=== PATIENT | female | born 1995 ===

== ENCOUNTER 2018-02-01 17:04 | Emergency (ER) | payer OTHER, SELFPAY ==
[2018-02-01 18:14] VITALS: BP 122/83; PULSE 84; RESP 16; TEMP 37.2; O2SAT 99; BMI 27.4
--- NOTE | 2018-02-01 19:04 | DI.US.S_ITS ---
PROCEDURE: US PELVIC COMPLETE INDICATIONS: LEFT PELVIC PAIN TECHNIQUE: Real-time scanning was performed of the pelvic organs, with image documentation. Additional endovaginal scanning was necessary due to incomplete visualization of the adnexal and endometrial structures by transabdominal scanning. COMPARISON: None. FINDINGS: Transabdominal scanning: Limited scanning through the kidneys shows no hydronephrosis. No pathologic free abdominal or pelvic fluid. Endovaginal scanning: Uterus: Uterus is normal in size at 8.1 x 4.2 x 5.7 cm. The endometrium measures 13.8 mm in combined thickness. Ovaries: The right ovary measures 3.4 x 1.9 x 2.2 cm and has a normal echotexture. The left ovary measures 3.3 x 2.1 x 2.9 cm. There is a 2.4 x 1.3 x 2.1 cm simple left ovarian cyst. There is normal right and left Doppler ovarian waveforms. IMPRESSION: 1. Simple left ovarian cyst which is likely physiologic in a premenopausal female. 2. Otherwise unremarkable pelvic ultrasound. Dictated by: Tania Maya M.D. on 02/01/2018 at 19:40 Approved by: Tania Maya M.D. on 02/01/2018 at 19:42
[2018-02-01 19:15] LABS: Add Manual Diff / Slide Review NO; Basophils Percent Auto 0.4 % (0-2); Eosinophils Percent Auto 1.5 % (2-4); Hematocrit 43.8 % (36-46); Hemoglobin 14.9 g/dL (12.0-16.0); Lymphocytes Percent Auto 18.4 % (25-40); Mean Corpuscular Hemoglobin 29.7 PG (26-34); Mean Corpuscular Volume 87.6 fL (80-100); Monocytes Percent Auto 10.3 % (3-14); Neutrophils Absolute Auto 4900 /uL (3000-5900); Neutrophils Percent Auto 69.4 % (50-75); Platelet Count 229 X10^3/uL (150-400); Red Cell Distribution Width 12.9 % (11.6-14.8); White Blood Cell Count 7.1 X10^3/uL (4.5-11.0)
[2018-02-01 19:18] LABS: BUN Creatinine Ratio 13.8 (6-22); Blood Urea Nitrogen 11 mg/dL (7-17); Carbon Dioxide 29 mmol/L (22-32); Chloride 100 mmol/L (98-107); Estimated Glomerular Filt Rate > 60.0 mL/min (>60); Glucose 83 mg/dL (70-100); HEMOLYSIS < 15 (0-50); Potassium 3.6 mmol/L (3.4-5.1); Sodium 141 mmol/L (137-145)
[2018-02-01 20:09] VITALS: BP 129/81; PULSE 79; RESP 14; TEMP 37; O2SAT 100
--- NOTE | 2018-02-01 20:21 | ED.ABDPAIN ---
HPI - Abdominal Pain <MARCOS Sy - Last Filed: 02/01/18 22:18> General Chief Complaint: Abdominal Pain Stated Complaint: ABD PAIN LT SIDE Time Seen by Provider: 02/01/18 20:20 Source: patient Mode of arrival: ambulatory Limitations: no limitations History of Present Illness HPI narrative: 23-year-old female with history of ovarian cyst here for complaint of left-sided pelvic pain that started 3 days ago. She denies any trauma to the area. She denies any abnormal vaginal discharge or bleeding. The last bowel movement was earlier today and was unremarkable. No urinary symptoms. No nausea or vomiting she denies any other concerns or complaints. She is concerned she may have another ovarian cyst. She denies any stress relievers of her pain. MD complaint: abdominal pain Related Data Home Medications Medication Instructions Recorded Confirmed norethindrone-e.estradiol-iron 1 tab PO DAILY 02/01/18 [ (28)] Allergies Allergy/AdvReac Type Severity Reaction Status Date / Time latex [LATEX] Allergy Unknown HIVES Unverified 02/01/18 18:13 Review of Systems <MARCOS Sy - Last Filed: 02/01/18 22:18> Review of Systems All systems reviewed & are unremarkable except as noted in HPI and below Constitutional Denies chills, Denies fever(s), Denies lethargy and Denies weakness Eyes Denies change in vision, Denies eye discharge, Denies irritation and Denies loss of vision ENT Ears, Nose, Mouth, and Throat: Denies change in voice, Denies neck pain and Denies sore throat Cardiovascular Denies chest pain, Denies irregular heart rhythm, Denies lightheadedness, Denies palpitations, Denies dyspnea, Denies dyspnea on exertion and Denies orthopnea Respiratory Denies cough, Denies dyspnea, Denies dyspnea on exertion and Denies wheezing Gastrointestinal Gastrointestinal: Denies abdominal pain, Denies change in bowel habits, Denies diarrhea, Denies nausea and Denies vomiting Genitourinary Comments: Left pelvic pain Musculoskeletal Denies neck pain Integumentary/Breasts Denies pruritus, Denies erythema, Denies rash and Denies wounds Neurologic Denies confusion, Denies loss of vision and Denies weakness Psychiatric Denies anxiety, Denies confusion, Denies depression, Denies homicidal ideation and Denies suicidal ideation Endocrine Denies palpitations Hematologic/Lymphatic Denies easy bruising Allergic/Immunologic Denies wheezing Exam <MARCOS Sy - Last Filed: 02/01/18 22:18> Initial Vital Signs Initial Vital Signs: Vital Signs Temperature 98.9 F 02/01/18 18:14 Pulse Rate 84 02/01/18 18:14 Respiratory Rate 16 02/01/18 18:14 Blood Pressure 122/83 02/01/18 18:14 Pulse Oximetry 99 02/01/18 18:14 Const General: cooperative and well developed Nutritional Appearance: well nourished Orientation: alert, awake, oriented x3 and not confused HENAZ Mouth: oral mucosae normal and moist mucous membranes Eyes Conjunctivae: conjunctivae normal Sclera: sclerae normal Pupils: PERRL EOM: EOM intact bilaterally Resp Effort & Inspection: normal respiratory effort, able to speak in complete sentences, no respiratory distress and no use of accessory muscles Auscultation: clear to auscultation bilaterally, no rales, no rhonchi and no wheezes Cardio Rate: regular rate Rhythm: regular rhythm Heart Sounds: no click, no gallops, no murmurs and no rubs Pulses: normal peripheral pulses GI Inspection: non-distended Palpation: soft, no hepatosplenomegaly, No guarding, No pulsatile mass and tender ( tenderness to the left pelvic region) Auscultation: normal bowel sounds General: No CVA tenderness Skin General: no rashes or lesions noted, No jaundice and No petechiae Neuro General: alert, oriented x3, gait normal and no focal motor deficits Speech: speech normal <Ada Way DO - Last Filed: 02/02/18 22:32> Initial Vital Signs Initial Vital Signs: Vital Signs Temperature 98.9 F 02/01/18 18:14 Pulse Rate 84 02/01/18 18:14 Respiratory Rate 16 02/01/18 18:14 Blood Pressure 122/83 02/01/18 18:14 Pulse Oximetry 99 02/01/18 18:14 Course <MARCOS Sy - Last Filed: 02/01/18 22:18> Orders Ordered: ED Orders 02/01/18 18:50 Basic Metabolic Panel Stat Complete Blood Count AUTO DIFF Stat 02/01/18 19:04 US pelvic complete Stat Vital Signs - 8 hr 02/01/18 18:14 02/01/18 20:09 Temperature 98.9 F 98.6 F Pulse Rate 84 79 Respiratory Rate 16 14 Blood Pressure 122/83 Blood Pressure [Left Arm] 129/81 Pulse Oximetry 99 100 <Ada Way DO - Last Filed: 02/02/18 22:32> Orders Ordered: ED Orders 02/01/18 18:50 Basic Metabolic Panel Stat Complete Blood Count AUTO DIFF Stat 02/01/18 19:04 US pelvic complete Stat Vital Signs - 8 hr 02/01/18 18:14 02/01/18 20:09 Temperature 98.9 F 98.6 F Pulse Rate 84 79 Respiratory Rate 16 14 Blood Pressure 122/83 Blood Pressure [Left Arm] 129/81 Pulse Oximetry 99 100 MDM - Abdominal Pain <MARCOS Sy - Last Filed: 02/01/18 22:18> Lab Data Result diagrams: 02/01/18 18:50 02/01/18 18:50 Lab Results 02/01/18 02/01/18 Range/Units 18:50 18:50 WBC 7.1 (4.5-11.0) X10^3/uL RBC 5.00 (4.0-5.2) X10^6/uL Hgb 14.9 (12.0-16.0) g/dL Hct 43.8 (36-46) % MCV 87.6 (80-100) fL MCH 29.7 (26-34) PG MCHC 34.0 (30-36) % RDW 12.9 (11.6-14.8) % Plt Count 229 (150-400) X10^3/uL Neut % (Auto) 69.4 (50-75) % Lymph % (Auto) 18.4 L (25-40) % [place] % (Auto) 10.3 (3-14) % Eos % (Auto) 1.5 L (2-4) % Baso % (Auto) 0.4 (0-2) % Neut # (Auto) 4900 (8536-5616) /uL Sodium 141 (137-145) mmol/L Potassium 3.6 (3.4-5.1) mmol/L Chloride 100 (98-107) mmol/L Carbon Dioxide 29 (22-32) mmol/L BUN 11 (7-17) mg/dL Creatinine 0.80 (0.52-1.04) mg/dL Estimated GFR > 60.0 (>60) mL/min BUN/Creatinine Ratio 13.8 (6-22) Glucose 83 (70-100) mg/dL Calcium 11.0 H (8.4-10.2) mg/dL Point of care testing: Point of Care Testing Test Results Negative Urine Dip Bedside Urine Glucose Negative Bedside Urine Bilirubin - Negative Bedside Urine Ketone - Negative Urine Specific [place] 1.015 Bedside Urine Occult Blood - Negative Bedside Urine pH 6.0 Bedside Urine Protein - Negative Bedside Urine Urobilinogen - Negative Bedside Urine Nitrite - Negative Bedside Urine Leukocytes - Negative Esterase Imaging Data pelvic US : Radiologist's impression: [address] [address] Ultrasound Report Signed Patient: Lauren Braga [facility]#: [id number] : 1995Acct:[id number] Age/Sex: 23 / FDate of Service: 02/01/18 Loc: ED Accession Number: [id number] Procedure: US pelvic complete Ordering Provider: Ada Way D.O. PROCEDURE: US PELVIC COMPLETE INDICATIONS: LEFT PELVIC PAIN TECHNIQUE: Real-time scanning was performed of the pelvic organs, with image documentation. Additional endovaginal scanning was necessary due to incomplete visualization of the adnexal and endometrial structures by transabdominal scanning. COMPARISON: None. FINDINGS: Transabdominal scanning: Limited scanning through the kidneys shows no hydronephrosis. No pathologic free abdominal or pelvic fluid. Endovaginal scanning: Uterus: Uterus is normal in size at 8.1 x 4.2 x 5.7 cm. The endometrium measures 13.8 mm in combined thickness. Ovaries: The right ovary measures 3.4 x 1.9 x 2.2 cm and has a normal echotexture. The left ovary measures 3.3 x 2.1 x 2.9 cm. There is a 2.4 x 1.3 x 2.1 cm simple left ovarian cyst. There is normal right and left Doppler ovarian waveforms. IMPRESSION: 1. Simple left ovarian cyst which is likely physiologic in a premenopausal female. 2. Otherwise unremarkable pelvic ultrasound. Dictated by: Tania Maya M.D. on 02/01/2018 at 19:40 Approved by: Tania Maya M.D. on 02/01/2018 at 19:42 MDM Narrative Medical decision making narrative: CBC and Chem panel were obtained and were unremarkable. Urinalysis was negative for urinary tract infection and . Ultrasound of the pelvic regions shows a 2 cm simple cyst to the left ovarian area. Pain is consistent with her prior ovarian cyst. Recommend that she follows up with her obgyn hospitalist physician here in the next several days for re-evaluation. [id number] ibuprofen as needed for any discomfort. For worsening symptoms return to the emergency room. <Ada Way, DO - Last Filed: 02/02/18 22:32> Lab Data Lab Results 02/01/18 02/01/18 Range/Units 18:50 18:50 WBC 7.1 (4.5-11.0) X10^3/uL RBC 5.00 (4.0-5.2) X10^6/uL Hgb 14.9 (12.0-16.0) g/dL Hct 43.8 (36-46) % MCV 87.6 (80-100) fL MCH 29.7 (26-34) PG MCHC 34.0 (30-36) % RDW 12.9 (11.6-14.8) % Plt Count 229 (150-400) X10^3/uL Neut % (Auto) 69.4 (50-75) % Lymph % (Auto) 18.4 L (25-40) % [place] % (Auto) 10.3 (3-14) % Eos % (Auto) 1.5 L (2-4) % Baso % (Auto) 0.4 (0-2) % Neut # (Auto) 4900 (1696-5753) /uL Sodium 141 (137-145) mmol/L Potassium 3.6 (3.4-5.1) mmol/L Chloride 100 (98-107) mmol/L Carbon Dioxide 29 (22-32) mmol/L BUN 11 (7-17) mg/dL Creatinine 0.80 (0.52-1.04) mg/dL Estimated GFR > 60.0 (>60) mL/min BUN/Creatinine Ratio 13.8 (6-22) Glucose 83 (70-100) mg/dL Calcium 11.0 H (8.4-10.2) mg/dL Point of care testing: Point of Care Testing Test Results Negative Urine Dip Bedside Urine Glucose Negative Bedside Urine Bilirubin - Negative Bedside Urine Ketone - Negative Urine Specific [place] 1.015 Bedside Urine Occult Blood - Negative Bedside Urine pH 6.0 Bedside Urine Protein - Negative Bedside Urine Urobilinogen - Negative Bedside Urine Nitrite - Negative Bedside Urine Leukocytes - Negative Esterase Discharge Plan Departure Patient Disposition: Home Clinical Impression: Left ovarian cyst Discharge Date/Time: 02/01/18 20:55 Interventions: ED Discharge Assessment Last Done: 02/01/18 20:54 Activity Restrictions/Additional Instructions: laboratory results today were unremarkable. Urinalysis was negative for urinary tract infection and . Ultrasound shows a cyst to the left ovarian area which is most likely causing your discomfort. follow up with obgyn hospitalist physician later this week for re-evaluation. Use [id number] ibuprofen as needed for any discomfort. For any worsening symptoms return to the emergency room. Prescriptions: No Action norethindrone-e.estradiol-iron [ FE 1.5/30 (28)] 1.5 mg-30 mcg (21)/75 mg (7) tablet 1 tab PO DAILY RF: 0 Referrals: Beti Mc MD [Primary Care Provider] - <Ada Way DO - Last Filed: 02/02/18 22:32> Cosign ED Attending Cosignature Attestation: I was immediately available in the department for consultation. Documentation has been reviewed. I agree with assessment and plan.
== END 2018-02-01 20:55 | disposition home or self-care (01) ==
PROVIDERS: Emergency Medicine; Emergency Provider Nurse Practitioner Family; PCP Family Medicine
DX: N83.202 Unspecified ovarian cyst, left side (principal)
CPT/HCPCS: 36591; 76830; 76856; 80048; 81003; 81025; 85025; 99283; 99284